=== PATIENT | female | born 1965 | race Two or more races ===

== ENCOUNTER 2021-10-31 11:28 | Emergency (ER) | payer OTHER ==
[~2021-10-31] VITALS: Ht 162.6 cm; Wt 109.0 kg
[2021-10-31] MEDS ORDERED: KETOROLAC TROMETH 60MG/2ML VIAL IM ONE (15:15)
[2021-10-31] MEDS ORDERED: TRAM-297 PO (16:42)
[2021-10-31] MEDS ORDERED: PRED20TA2 PO (16:42)
[2021-10-31 16:48] VITALS: BP 152/97
== END 2021-10-31 16:51 | disposition home or self-care (01) ==
LOC: ER 11:28
DX: M51.37 Other intervertebral disc degeneration, lumbosacral region (principal); M43.16 Spondylolisthesis, lumbar region; I10 Essential (primary) hypertension; Z88.6 Allergy status to analgesic agent; Z88.0 Allergy status to penicillin
CPT/HCPCS: 72100; 96372; 99283; J1885